=== PATIENT | male | born 1950 ===

== ENCOUNTER 2018-03-10 15:54 | Inpatient (IN) | payer OTHER ==
[2018-02-25 23:00] VITALS: BMI 22.1
[2018-03-10] MEDS ORDERED: Lidocaine 2% Inj (20ml) ONE (16:33)
[2018-03-10] MEDS ORDERED: Iodixanol 320 MG/ML 100 ML BOTTLE IV ONE (16:33)
[2018-03-10] MEDS ORDERED: Iohexol 350mgl/ml 50 ML ONE (16:33)
[2018-03-10] MEDS ORDERED: Iodixanol 320 MG/ML 200 ML BOTTLE IV ONE (16:33)
[2018-03-10] MEDS ORDERED: Nitroglycerin 50mg in D5W 0 MG/0 ML BOTTLE IV ONE (16:34)
[2018-03-10] MEDS ORDERED: Verapamil 0 ML ONE (16:34)
[2018-03-10] MEDS ORDERED: Adenosine 90 mg/30mL IV ONE (16:35)
[2018-03-10] MEDS ORDERED: Midazolam 2 MG/2 ML VIAL ONE (16:58)
[2018-03-10] MEDS ORDERED: Morphine 4 mg/ml ISec ONE (17:20)
[2018-03-10] MEDS ORDERED: Protamine 50mg/5mL Inj IV ONE (17:50)
[2018-03-10] MEDS ORDERED: Morphine 2 mg/2 mL syringe IVP PRN (19:28)
[2018-03-10] MEDS ORDERED: Nitroglycerin 50mg in D5W 50 MG/250 ML BOTTLE IV PRN (19:31)
[2018-03-10] MEDS ORDERED: Nitroglycerin 50mg in D5W 50 MG/250 ML BOTTLE IV ONE (19:35)
[2018-03-10 19:54] LABS: BASO # 0.02 K/mm3 (0.0-2.0); BASO % 0.1 % (0.0-3.0); EOS # 0.1 (0.0-0.7); EOS % 0.5 % (1.5-5.0); GRAN # 14.53 (1.4-6.5); GRAN % 90.1 % (50.0-68.0); HEMOGLOBIN 8.4 g/dL (14.0-18.0); LYMPH # 0.7 (1.2-3.4); LYMPH % 4.6 % (22.0-35.0); MEAN CELL VOLUME 102.3 fl (80.0-105.0); MEAN CORPUSCULAR HEMOGLOBIN 32.4 pg (25.0-35.0); MEAN CORPUSCULAR HGB CONC 31.7 g/dl (31.0-37.0); MEAN PLATELET VOLUME 9.5 fl (7.0-11.0); MONO # 0.8 (0.1-0.6); MONO % 4.7 % (1.0-6.0); PLATELET COUNT 157 10^3/uL (120.0-450.0); RBC 2.59 10^6/uL (3.5-6.1); RED CELL DISTRIBUTION WIDTH 15.8 % (11.5-14.5); WHITE BLOOD COUNT 16.1 10^3/ul (4.5-11.0)
[2018-03-10 20:22] LABS: ALB/GLOB RATIO 1.2 (1.1-1.8); ALBUMIN 3.2 g/dL (3.0-4.8)
[2018-03-10 20:41] LABS: TROPONIN I 0.12 ng/mL
[2018-03-10] MEDS ORDERED: Sodium Chloride 0.9% 1,000 ML IV SCH (20:45)
[2018-03-10 20:53] LABS: INR 1.23 (0.93-1.08); PROTHROMBIN TIME 14.1 SECONDS (9.4-12.5)
[2018-03-10 20:59] LABS: BAND 1 % (0-2); NEUTROPHIL 94 % (50.0-70.0)
[2018-03-10 21:00] LABS: EOSINOPHIL 1 % (0.0-3.0); LYMPHOCYTE 3 % (22.0-35.0); MONOCYTE 1 % (1.0-6.0)
[2018-03-10] MEDS ORDERED: Morphine 4 mg/ml ISec IVP STA (21:17)
[2018-03-10] MEDS ORDERED: Cefepime 1gm in NS 100ml 1 GM/100 ML BAG IVPB ONE (21:50)
[2018-03-10] MEDS ORDERED: Albuterol-Ipratrop 3 mg / 0.5 (3 ml) UD IH PRN (21:57)
[2018-03-10] MEDS ORDERED: Linezolid 600 mg in D5W 300 ml 600 MG/300 ML BAG IVPB SCH (22:00)
[2018-03-10] MEDS ORDERED: Fluticasone-Salmeterol 500-50mcg Diskus INH SCH (22:00)
[2018-03-10] MEDS ORDERED: Morphine 4 mg/ml ISec IVP PRN (22:35)
--- NOTE | 2018-03-10 22:45 | CP.PCM.HP ---
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 Upon reviewing the chart, patient was admitted to [facility] on 02/25 with chest pain, was found to have bilateral pleural effusion left greater than right, underwent thoracentesis removing 1900 cc, which was exudates by light criteria, no growth on cultures so far. Patient was noted to have infiltrations on chest x-ray was started on cefepime, pending cultures. [employer] was called on 03/10 due to recurrent worsening chest pain, labs with elevated trop, with ekg changes thus patient was transferred to [facility] to undergo cardiac cath in [facility]. Rosalee contreras was called while in labor relations specialist today, which was later canceled. Patient underwent coronary artery stenting. Patient was evaluated in ICU, states he's still experiencing left sided chest pain, and is constant. Denies sob, no fever or chills. No nausea, vomiting or diarrhea. No dysurea. 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 PSHx: cardiac cath, AV fistula Social: former tobacco, admits occasional alcohol, denies alcohol and illicit drug use. Allergy: Bactrim Home meds: as per chart. Present on Admission - Present on Admission Any Indicators Present on Admission: No History of DVT/PE: No History of Uncontrolled Diabetes: No Urinary Catheter: No Decubitus Ulcer Present: No Review of Systems - Review of Systems All systems: reviewed and no additional remarkable complaints except Review of Systems: 12 point ROS reviewed, all negative except as per HPI. Past Patient History - Infectious Disease Hx of Infectious Diseases: None - Past Medical History & Family History Past Medical History?: Yes - Past Social History Smoking Status: Former Smoker Alcohol: None Drugs: Denies Home Situation {Lives}: Alone - CARDIAC Hx Cardiac Disorders: Yes Hx Congestive Heart Failure: Yes Hx Hypertension: Yes - PULMONARY Hx Respiratory Disorders: Yes Hx Chronic Obstructive Pulmonary Disease (COPD): Yes Hx Pneumonia: Yes - NEUROLOGICAL Hx Neurological Disorder: Yes Hx Meningitis: Yes Hx Seizures: Yes - HEENT Hx HEENT Problems: No - RENAL Hx Chronic Kidney Disease: Yes Hx Dialysis: Yes - ENDOCRINE/METABOLIC Hx Endocrine Disorders: No - HEMATOLOGICAL/ONCOLOGICAL Hx Blood Disorders: Yes Hx Anemia: Yes Hx Human Immunodeficiency Virus (HIV): No - INTEGUMENTARY Hx Dermatological Problems: No - MUSCULOSKELETAL/RHEUMATOLOGICAL Hx Musculoskeletal Disorders: Yes Hx Arthritis: Yes - GASTROINTESTINAL Hx Gastrointestinal Disorders: Yes Hx Hemorrhoids: Yes - GENITOURINARY/GYNECOLOGICAL Hx Genitourinary Disorders: No - PSYCHIATRIC Hx Psychophysiologic Disorder: Yes Hx Anxiety: Yes Hx Depression: Yes - SURGICAL HISTORY Hx Surgeries: Yes Hx Coronary Stent: No Other/Comment: L eyebrow laceration - ANESTHESIA Hx Anesthesia: Yes Hx Anesthesia Reactions: No Hx Malignant Hyperthermia: No Meds Allergies/Adverse Reactions: Allergies Allergy/AdvReac Type Severity Reaction Status Date / Time sulfamethoxazole Allergy RASH Verified 01/11/18 09:51 [From ] trimethoprim [From ] Allergy RASH Verified 01/11/18 09:51 Physical Exam - Constitutional Appears: Unkempt, Older Than Stated Age, Cachectic, Chronically Ill - Head Exam Head Exam: ATRAUMATIC, NORMAL INSPECTION, NORMOCEPHALIC - Eye Exam Eye Exam: EOMI, Normal appearance, PERRL. absent: Scleral icterus Pupil Exam: NORMAL ACCOMODATION - ENT Exam ENT Exam: Mucous Membranes Dry - Neck Exam Neck exam: Positive for: Normal Inspection - Respiratory Exam Respiratory Exam: Decreased Breath Sounds (at the bases), NORMAL BREATHING PATTERN. absent: Prolonged Expiratory Phase, Rales, Rhonchi, Wheezes, Respiratory Distress, Stridor - Cardiovascular Exam Cardiovascular Exam: Diastolic murmur, Gallop, REGULAR RHYTHM, RRR, Rubs, +S1, + S2. absent: Irregular Rhythm, JVD, Systolic Murmur - GI/Abdominal Exam GI & Abdominal Exam: Normal Bowel Sounds, Soft. absent: Diminished Bowel Sounds , Distended, Firm, Guarding, Hypoactive Bowel Sounds, Rebound, Rigid, Tenderness - Extremities Exam Extremities exam: Positive for: normal inspection. Negative for: pedal edema, tenderness - Back Exam Back exam: NORMAL INSPECTION - Neurological Exam Neurological exam: Alert, Oriented x3 - Psychiatric Exam Psychiatric exam: Flat Affect - Skin Skin Exam: Dry, Normal Color, Warm Additional comments: right groin with no hematoma, no active bleeding. Results - Vital Signs Recent Vital Signs: Last Vital Signs Temp Pulse 112 H 03/10/18 22:19 Resp 23 03/10/18 21:00 BP 119/59 L 03/10/18 22:19 Pulse Ox 100 03/10/18 21:00 - Labs Result Diagrams: 03/10/18 19:50 03/10/18 19:50 Labs: Laboratory Results - last 24 hr 03/10/18 03/10/18 03/10/18 19:50 19:50 20:40 WBC 16.1 H RBC 2.59 L Hgb 8.4 L Hct 26.5 L MCV 102.3 MCH 32.4 MCHC 31.7 RDW 15.8 H Plt Count 157 MPV 9.5 Gran % 90.1 H Lymph % (Auto) 4.6 L Major % (Auto) 4.7 Eos % (Auto) 0.5 L Baso % (Auto) 0.1 Gran # 14.53 H Lymph # (Auto) 0.7 L Major # (Auto) 0.8 H Eos # (Auto) 0.1 Baso # (Auto) 0.02 Neutrophils % (Manual) 94 H Band Neutrophils % 1 Lymphocytes % (Manual) 3 L Monocytes % (Manual) 1 Eosinophils % (Manual) 1 PT 14.1 H INR 1.23 H APTT 28.0 Sodium 135 Potassium 5.0 Chloride 99 Carbon Dioxide 22 Anion Gap 19 BUN 40 H Creatinine 6.0 H Est GFR ( Amer) 11 Est GFR (Non-Af Amer) 9 Random Glucose 114 H Calcium 7.0 L Magnesium 2.2 Total Bilirubin 0.4 AST 253 H D ALT 206 H Alkaline Phosphatase 56 Lactate Dehydrogenase 1285 H Total Creatine Kinase 69 Troponin I 0.12 D Total Protein 5.9 Albumin 3.2 Globulin 2.7 Albumin/Globulin Ratio 1.2 Assessment & Plan - Assessment and Plan (Free Text) Assessment: Patient is a 67 y/o M with PMHx of ESRD ( HD Thu//Thu), RUE DVT, htn, COPD, 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 Patient complained of recurrent chest pain, [employer] was called on , patient had repeat troponin with elevation with ekg changes, patient was transferred to [facility] for cardiac cath. Code blue called, then was subsequently canceled, patient had coronary stenting placed, and is now in ICU for further observation and management. Plan: 1) Chest pain due to NSTEMI- S/P cardiac cath with stenting - Now in ICU for monitoring - will trend troponin and ekg - + recurrent chest pain in icu, patient was giving sublingual nitro - will obtain lipid panel and hgba1c - continue asa - Follow up with cardiology for recommendations - Morphine prn for pain - Resumed coreg in the AM. 2) Transient episode of hypotension - s/p fluid boluses - now on NS@80cc/hr - Will maintain MAP above 65. 3) Mariano pleural effusions s/p thoracentesis at [facility] - will repeat chest x-ray in the morning 4) SIRS r/o sepsis due to pleural infiltrations r/o pneumonia - afebrile, + leukocytosis, + tachycardia - will obtain procal - repeat cultures - blood culture x1 from [facility] growing gram + cocci - will resume cefepime and add zyvox - ID consulted 5) Macrocytic anemia- had previous work up with normal folate and vitamin D - anemia with likely superimposed anemia of kidney disease - was on procrit with HD as per nephro note - No active signs of bleeding, will continue to monitor. 6) ESRD on HD T,t,s - Nephro consulted for HD tomorrow - will resume renvela 7) Worsening transaminitis likely due to shock liver - will monitor for now. 8) H/O copd- will start duoned prn and standing dose 9) GI and DVT prophylaxis: protonix and VTE device, switch to sc heparin tomorrow Patient seen, examined and case discussed with Dr Scott. - Date & Time Date: 03/10/18 Time: 22:20 <Erica Scott - Last Filed: 03/11/18 02:48> Results - Vital Signs Recent Vital Signs: Last Vital Signs Temp 97.8 F 03/10/18 23:41 Pulse 84 03/10/18 23:41 Resp 13 03/10/18 23:41 BP 88/43 L 03/10/18 23:41 Pulse Ox 97 03/10/18 23:30 - Labs Result Diagrams: 03/10/18 19:50 03/10/18 19:50 Labs: Laboratory Results - last 24 hr 03/10/18 03/10/18 03/10/18 19:50 19:50 20:40 WBC 16.1 H RBC 2.59 L Hgb 8.4 L Hct 26.5 L MCV 102.3 MCH 32.4 MCHC 31.7 RDW 15.8 H Plt Count 157 MPV 9.5 Gran % 90.1 H Lymph % (Auto) 4.6 L Major % (Auto) 4.7 Eos % (Auto) 0.5 L Baso % (Auto) 0.1 Gran # 14.53 H Lymph # (Auto) 0.7 L Major # (Auto) 0.8 H Eos # (Auto) 0.1 Baso # (Auto) 0.02 Neutrophils % (Manual) 94 H Band Neutrophils % 1 Lymphocytes % (Manual) 3 L Monocytes % (Manual) 1 Eosinophils % (Manual) 1 PT 14.1 H INR 1.23 H APTT 28.0 Sodium 135 Potassium 5.0 Chloride 99 Carbon Dioxide 22 Anion Gap 19 BUN 40 H Creatinine 6.0 H Est GFR ( Amer) 11 Est GFR (Non-Af Amer) 9 Random Glucose 114 H Calcium 7.0 L Magnesium 2.2 Total Bilirubin 0.4 AST 253 H D ALT 206 H Alkaline Phosphatase 56 Lactate Dehydrogenase 1285 H Total Creatine Kinase 69 Troponin I 0.12 D Total Protein 5.9 Albumin 3.2 Globulin 2.7 Albumin/Globulin Ratio 1.2 Attending/Attestation - Attestation I have personally seen and examined this patient.: Yes I have fully participated in the care of the patient.: Yes I have reviewed all pertinent clinical information: Yes Notes (Text): 03/11/18 02:47 Agree with documentation. CCT spent 30 minutes.
[2018-03-11] MEDS: Albuterol-Ipratrop 3 mg / 0.5 (3 ml) UD IH SCH ×2 (02:25→08:46)
[2018-03-11] MEDS ORDERED: Vancomycin 2 GM in Sodium Chloride 0.9% 500 ML IVPB ONE (06:27)
[2018-03-11] MEDS ORDERED: Meropenem 500 MG in Sodium Chloride 0.9% 50 ML IVPB SCH (06:30)
--- NOTE | 2018-03-11 06:31 | CARDCATH ---
PROCEDURE DATE: 03/10/2018 INDICATIONS: Mr. Rodriguez is a 67-year-old male who presented to [facility] two weeks ago with the complaints of chest pain, unstable angina. He was diagnosed with bilateral pleural effusion, shortness of breath, possible pneumonia, was treated with antibiotics and had thoracentesis done, which showed patient had exudative effusion on the left side and transudative effusion on the right side. He also had heart failure for which he had been on end-stage renal disease hemodialysis. He had recurrent episodes of chest pain. Because of prior history of bipolar behavior, it was decided to pursue noninvasive approach. Initially a stress test was arranged for this morning, right prior to the stressing part of the stress test, patient is already having chest pain then EKG showed dynamic ST changes. CABG was canceled and subsequently he was transferred over to [facility]. He does have known history of CAD, done documented by a cardiac catheterization back in 09/2017 at which time no intervention was performed secondary to his behavior disorder. PROCEDURE PERFORMED: Left heart catheterization with selective left and right coronary angiogram, percutaneous transluminal coronary angioplasty stenting of proximal circumflex 80% stenosis, deployment of 3 x 20 Diaz drug-eluting stent, regeneration from 80% down to 0% BRUNO 3 flow, 6-Uruguayan right femoral arterial access, Angio-Seal device deployed, which failed and subsequently had manual compression for hemostasis. TECHNIQUES OF PROCEDURE: After obtaining informed consent, the patient was brought to the cardiac catheterization suite in post-absorptive, non-sedated state. The patient was prepped and draped in the usual sterile fashion, 2% lidocaine was used for infiltration of anesthesia. Using modified Seldinger technique, a 6-[place]ruguayan sheath was introduced into the right femoral l artery. Subsequently, over a J wire, JL4 and JR4 diagnostic catheters were used to engage the right and left coronary system. Angiogram was obtained in orthogonal views. ANGIOGRAPHIC FINDINGS: Left main large-sized vessel bifurcates into LAD and circumflex. LAD has a proximal 40% stenosis, gives off 2 small diagonal branches. Left circumflex is a large-sized vessel, runs in the AV groove, has a proximal 70% to 80% stenosis, gives off obtuse marginal branch. Ramus intermedius, small-sized vessel. RCA large-sized vessel has distal 70% stenosis, gives off PDA and PLV branches. TECHNIQUES OF INTERVENTION: After reviewing the above angiographic findings, it was decided to further intervene on the proximal circumflex high-grade lesion, EBU 3.5 guiding catheter was used to engage the left and right coronary system. The lesion was predilated with a 2.5 mm x 15 mm balloon and stented with a 3 x 21 mm Diaz drug eluting stent. The final angiogram showed regeneration down to 0% with BRUNO-3 flow. COMPLICATIONS: After the stent deployment, patient had a PEA cardiac arrest, most likely attributable to hypoxemia from sedation. Patient had a CPR for 2 minutes and dose of epi, had a return of spontaneous circulation after 2 minutes. He was awake, responsive and moving all the extremities. He was monitored for half an hour and maintained normal hemodynamics and pressures. IMPRESSION: Successful revascularization of the left circumflex high-grade lesion, deployment of [place] drug eluting stent. RECOMMENDATION: Patient is to be observed in the ICU for close monitoring after PE arrest. Continue patient dual antiplatelet therapy, beta-blockers, statin, guideline-directed therapy for CAD. Karthik Nj MD
[2018-03-11 07:11] LABS: BASO # 0.01 K/mm3 (0.0-2.0); BASO % 0.1 % (0.0-3.0); EOS % 0.4 % (1.5-5.0); GRAN # 6.07 (1.4-6.5); GRAN % 81.7 % (50.0-68.0); HEMOGLOBIN 8.7 g/dL (14.0-18.0); LYMPH # 0.7 (1.2-3.4); LYMPH % 9.5 % (22.0-35.0); MEAN CELL VOLUME 103.3 fl (80.0-105.0); MEAN CORPUSCULAR HEMOGLOBIN 31.8 pg (25.0-35.0); MEAN CORPUSCULAR HGB CONC 30.7 g/dl (31.0-37.0); MEAN PLATELET VOLUME 9.3 fl (7.0-11.0); MONO # 0.6 (0.1-0.6); MONO % 8.3 % (1.0-6.0); RBC 2.74 10^6/uL (3.5-6.1); RED CELL DISTRIBUTION WIDTH 15.9 % (11.5-14.5); WHITE BLOOD COUNT 7.4 10^3/ul (4.5-11.0)
[2018-03-11 07:41] LABS: ALB/GLOB RATIO 1.3 (1.1-1.8); ALBUMIN 3.6 g/dL (3.0-4.8); CALCIUM 7.2 mg/dL (8.4-10.5)
[2018-03-11] MEDS ORDERED: Albuterol 0.042% Inhal Sol (1.25 mg/3 mL) UD IH STA (07:59)
[2018-03-11] MEDS ORDERED: Sod Polystyrene Sulf 15 gm/60 ml Susp PO ONE (07:59)
[2018-03-11] MEDS ORDERED: Dextrose 50% SYRINGE Inj (50 ml) IVP ONE ×3 (07:59→10:09)
[2018-03-11 08:07] LABS: TROPONIN I 2.02 ng/mL
[2018-03-11] MEDS ORDERED: Insulin Regular 1 UNITS/0.01 ML ML IVP ONE (08:08)
--- NOTE | 2018-03-11 08:28 | RAD ---
HISTORY: pleural effusion/infiltration COMPARISON: No prior. FINDINGS: LUNGS: There is a [id number] left pleural effusion identified. Hypervascular markings are appreciated bilaterally with the cardiac silhouette appears upper limits normal size, partially obscured by left pleural effusion. Consider active CHF with underlying airspace disease not excluded at the mid to inferior left lung zones. No pneumothorax bilaterally. No right pleural effusion. OSSEOUS STRUCTURES: No significant abnormalities. VISUALIZED UPPER ABDOMEN: Normal. OTHER FINDINGS: None. IMPRESSION: Pattern suspicious for CHF with [id number] left pleural effusion evident potential airspace disease at the left base.
--- NOTE | 2018-03-11 09:29 | CP.CCUPN ---
CCU Objective - Vital Signs / Intake & Output Intake and Output (Last 8hrs): Intake & Output 03/10/18 03/11/18 03/11/18 22:59 06:59 14:59 Weight 149 lb 9.6 oz - Medications Active Medications: Active Medications Generic Name Dose Route Start Last Admin Trade Name Freq PRN Reason Stop Dose Admin Albuterol/Ipratropium 3 ml 03/11/18 02:00 03/11/18 08:46 Duoneb 3 Mg/0.5 Mg (3 Ml) Ud IH 3 ml [id number] BUSTER Administration Albuterol/Ipratropium 3 ml 03/10/18 21:57 Duoneb 3 Mg/0.5 Mg (3 Ml) Ud IH Q2H PRN Shortness of Breath Aspirin 81 mg 03/11/18 10:00 Aspirin Chewable PO DAILY [facility] Atorvastatin Calcium 10 mg 03/10/18 22:00 03/10/18 22:19 Lipitor PO 10 mg HS BUSTER Administration Carvedilol 25 mg 03/10/18 22:00 03/10/18 22:19 Coreg PO 25 mg Q12 BUSTER Administration Clopidogrel Bisulfate 75 mg 03/11/18 10:00 Plavix PO DAILY BUSTER Meropenem 500 mg/ Sodium 50 mls @ 100 mls/hr 03/11/18 06:30 Chloride IVPB 03/18/18 06:31 Q12 BUSTER Protocol Doxycycline Hyclate 100 mg/ 100 mls @ 100 mls/hr 03/11/18 10:00 Sodium Chloride IVPB Q12 [facility] Protocol Morphine Sulfate 4 mg 03/10/18 22:35 03/11/18 03:40 Morphine IVP 4 mg Q4H PRN Administration chest pain Pantoprazole Sodium 40 mg 03/11/18 10:00 Protonix Inj IVP DAILY [facility] Sevelamer HCl 1,600 mg 03/11/18 10:00 Renagel PO TID BUSTER - Patient Studies Lab Studies: Lab Studies 03/11/18 03/11/18 03/10/18 Range/Units 06:00 06:00 20:40 WBC 7.4 D (4.5-11.0) 10^3/ul RBC 2.74 L (3.5-6.1) 10^6/uL Hgb 8.7 L (14.0-18.0) g/dL Hct 28.3 L (42.0-52.0) % MCV 103.3 (80.0-105.0) fl MCH 31.8 (25.0-35.0) pg MCHC 30.7 L (31.0-37.0) g/dl RDW 15.9 H (11.5-14.5) % Plt Count 159 (120.0-450.0) 10^3/uL MPV 9.3 (7.0-11.0) fl Gran % 81.7 H (50.0-68.0) % Lymph % (Auto) 9.5 L (22.0-35.0) % Hudson % (Auto) 8.3 H (1.0-6.0) % Eos % (Auto) 0.4 L (1.5-5.0) % Baso % (Auto) 0.1 (0.0-3.0) % Gran # 6.07 (1.4-6.5) Lymph # (Auto) 0.7 L (1.2-3.4) Hudson # (Auto) 0.6 (0.1-0.6) Eos # (Auto) 0.0 (0.0-0.7) Baso # (Auto) 0.01 (0.0-2.0) K/mm3 Neutrophils % (Manual) (50.0-70.0) % Band Neutrophils % (0-2) % Lymphocytes % (Manual) (22.0-35.0) % Monocytes % (Manual) (1.0-6.0) % Eosinophils % (Manual) (0.0-3.0) % PT 14.1 H (9.4-12.5) SECONDS INR 1.23 H (0.93-1.08) APTT 28.0 (25.1-36.5) Seconds Sodium 137 (132-148) mmol/L Potassium 6.5 H* D (3.6-5.0) mmol/L Chloride 99 (98-107) mmol/L Carbon Dioxide 22 (21-33) mmol/L Anion Gap 23 H (10-20) BUN 52 H (7-21) mg/dL Creatinine 6.9 H (0.8-1.5) mg/dl Est GFR ( Amer) 10 Est GFR (Non-Af Amer) 8 Random Glucose 96 (70-110) mg/dL Calcium 7.2 L (8.4-10.5) mg/dL Magnesium 2.3 H (1.7-2.2) mg/dL Total Bilirubin 0.4 (0.2-1.3) mg/dL AST 186 H D (17-59) U/L ALT 181 H (7-56) U/L Alkaline Phosphatase 60 (38-126) U/L Lactate Dehydrogenase 759 H (333-699) U/L Total Creatine Kinase 198 (35-230) U/L Troponin I 2.02 H* D ng/mL NT-Pro-B Natriuret Pep (0-450) pg/mL Total Protein 6.4 (5.8-8.3) g/dL Albumin 3.6 (3.0-4.8) g/dL Globulin 2.8 gm/dL Albumin/Globulin Ratio 1.3 (1.1-1.8) Triglycerides 133 (35-160) mg/dL Cholesterol 124 L (130-200) mg/dL LDL Cholesterol Direct 42 (0-129) mg/dL HDL Cholesterol 40 (29-60) mg/dL 03/10/18 03/10/18 03/10/18 Range/Units 19:50 19:50 19:50 WBC 16.1 H (4.5-11.0) 10^3/ul RBC 2.59 L (3.5-6.1) 10^6/uL Hgb 8.4 L (14.0-18.0) g/dL Hct 26.5 L (42.0-52.0) % MCV 102.3 (80.0-105.0) fl MCH 32.4 (25.0-35.0) pg MCHC 31.7 (31.0-37.0) g/dl RDW 15.8 H (11.5-14.5) % Plt Count 157 (120.0-450.0) 10^3/uL MPV 9.5 (7.0-11.0) fl Gran % 90.1 H (50.0-68.0) % Lymph % (Auto) 4.6 L (22.0-35.0) % Hudson % (Auto) 4.7 (1.0-6.0) % Eos % (Auto) 0.5 L (1.5-5.0) % Baso % (Auto) 0.1 (0.0-3.0) % Gran # 14.53 H (1.4-6.5) Lymph # (Auto) 0.7 L (1.2-3.4) Hudson # (Auto) 0.8 H (0.1-0.6) Eos # (Auto) 0.1 (0.0-0.7) Baso # (Auto) 0.02 (0.0-2.0) K/mm3 Neutrophils % (Manual) 94 H (50.0-70.0) % Band Neutrophils % 1 (0-2) % Lymphocytes % (Manual) 3 L (22.0-35.0) % Monocytes % (Manual) 1 (1.0-6.0) % Eosinophils % (Manual) 1 (0.0-3.0) % PT (9.4-12.5) SECONDS INR (0.93-1.08) APTT (25.1-36.5) Seconds Sodium 135 (132-148) mmol/L Potassium 5.0 (3.6-5.0) mmol/L Chloride 99 (98-107) mmol/L Carbon Dioxide 22 (21-33) mmol/L Anion Gap 19 (10-20) BUN 40 H (7-21) mg/dL Creatinine 6.0 H (0.8-1.5) mg/dl Est GFR ( Amer) 11 Est GFR (Non-Af Amer) 9 Random Glucose 114 H (70-110) mg/dL Calcium 7.0 L (8.4-10.5) mg/dL Magnesium 2.2 (1.7-2.2) mg/dL Total Bilirubin 0.4 (0.2-1.3) mg/dL AST 253 H D (17-59) U/L ALT 206 H (7-56) U/L Alkaline Phosphatase 56 (38-126) U/L Lactate Dehydrogenase 1285 H (333-699) U/L Total Creatine Kinase 69 (35-230) U/L Troponin I 0.12 D ng/mL NT-Pro-B Natriuret Pep 66853 H (0-450) pg/mL Total Protein 5.9 (5.8-8.3) g/dL Albumin 3.2 (3.0-4.8) g/dL Globulin 2.7 gm/dL Albumin/Globulin Ratio 1.2 (1.1-1.8) Triglycerides (35-160) mg/dL Cholesterol (130-200) mg/dL LDL Cholesterol Direct (0-129) mg/dL HDL Cholesterol (29-60) mg/dL Laboratory Results - last 24 hr 03/10/18 03/10/18 03/10/18 19:50 19:50 19:50 WBC 16.1 H RBC 2.59 L Hgb 8.4 L Hct 26.5 L MCV 102.3 MCH 32.4 MCHC 31.7 RDW 15.8 H Plt Count 157 MPV 9.5 Gran % 90.1 H Lymph % (Auto) 4.6 L Hudson % (Auto) 4.7 Eos % (Auto) 0.5 L Baso % (Auto) 0.1 Gran # 14.53 H Lymph # (Auto) 0.7 L Hudson # (Auto) 0.8 H Eos # (Auto) 0.1 Baso # (Auto) 0.02 Neutrophils % (Manual) 94 H Band Neutrophils % 1 Lymphocytes % (Manual) 3 L Monocytes % (Manual) 1 Eosinophils % (Manual) 1 PT INR APTT Sodium 135 Potassium 5.0 Chloride 99 Carbon Dioxide 22 Anion Gap 19 BUN 40 H Creatinine 6.0 H Est GFR ( Amer) 11 Est GFR (Non-Af Amer) 9 Random Glucose 114 H Calcium 7.0 L Magnesium 2.2 Total Bilirubin 0.4 AST 253 H D ALT 206 H Alkaline Phosphatase 56 Lactate Dehydrogenase 1285 H Total Creatine Kinase 69 Troponin I 0.12 D NT-Pro-B Natriuret Pep 07597 H Total Protein 5.9 Albumin 3.2 Globulin 2.7 Albumin/Globulin Ratio 1.2 Triglycerides Cholesterol LDL Cholesterol Direct HDL Cholesterol 03/10/18 03/11/18 03/11/18 20:40 06:00 06:00 WBC 7.4 D RBC 2.74 L Hgb 8.7 L Hct 28.3 L MCV 103.3 MCH 31.8 MCHC 30.7 L RDW 15.9 H Plt Count 159 MPV 9.3 Gran % 81.7 H Lymph % (Auto) 9.5 L Hudson % (Auto) 8.3 H Eos % (Auto) 0.4 L Baso % (Auto) 0.1 Gran # 6.07 Lymph # (Auto) 0.7 L Hudson # (Auto) 0.6 Eos # (Auto) 0.0 Baso # (Auto) 0.01 Neutrophils % (Manual) Band Neutrophils % Lymphocytes % (Manual) Monocytes % (Manual) Eosinophils % (Manual) PT 14.1 H INR 1.23 H APTT 28.0 Sodium 137 Potassium 6.5 H* D Chloride 99 Carbon Dioxide 22 Anion Gap 23 H BUN 52 H Creatinine 6.9 H Est GFR ( Amer) 10 Est GFR (Non-Af Amer) 8 Random Glucose 96 Calcium 7.2 L Magnesium 2.3 H Total Bilirubin 0.4 AST 186 H D ALT 181 H Alkaline Phosphatase 60 Lactate Dehydrogenase 759 H Total Creatine Kinase 198 Troponin I 2.02 H* D NT-Pro-B Natriuret Pep Total Protein 6.4 Albumin 3.6 Globulin 2.8 Albumin/Globulin Ratio 1.3 Triglycerides 133 Cholesterol 124 L LDL Cholesterol Direct 42 HDL Cholesterol 40 EKG/Cardiology Studies: Cardiology / EKG Studies 03/10/18 19:48 EKG [ELECTROCARDIOGRAM] Stat Comment: Reason For Exam: chest pain 03/11/18 ELECTROCARDIOGRAM Routine Comment: Reason For Exam: hyperkalemia 03/11/18 05:00 EKG [ELECTROCARDIOGRAM] DAILY Comment: Reason For Exam: chest pain Critical Care Progress Note - Nutrition Nutrition: Nutrition Category Date Time Status Renal Diet [DIET] Diets 03/11/18 Breakfast Ordered Assessment/Plan - Assessment and Plan (Free Text) Plan: Mr Jennifer Contreras was transferred to [facility] for cardiac cath, currently being admitted to [facility] ICU due to code blue during cardiac cath. 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 underwent thoracentesis removing 1900 cc. Exudative on L. Transudate on R. (+) B-(1,3)-D-glucan. Negative cytology for malignancy. 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 Blood culture (+) gram pos cocci in chain x 1 bottle. He was started on cefepime (started on 03/08). DIPLOMATIC INTERPRETER was called on 03/10 due to recurrent worsening chest pain, labs with elevated trop, with ekg changes thus patient was transferred to [facility] to undergo cardiac cath in [facility]. After stenting, PEA arrest. Code blue was called, had CPR x 2 minues, epi given, ROSC in 2 minutes Patient underwent coronary artery stenting: - NAINA proximal circ, start duoantiplt, bb, stain - L cir 70-80% stenosos - RCA 70% stenos
[2018-03-11] MEDS ORDERED: Insulin Regular 1 UNITS/0.01 ML ML IV STA ×2 (09:34→10:09)
[2018-03-11] MEDS ORDERED: Magnesium Sulfate 1 gm in D5W 1 GM/100 ML BAG IVPB ONE (09:39)
[2018-03-11] MEDS ORDERED: Insulin Regular 1 UNITS/0.01 ML ML ONE (09:39)
[2018-03-11] MEDS ORDERED: DOBUTamine 500mg/250ml D5W 500 MG/250 ML BAG ONE (09:46)
[2018-03-11 09:53] LABS: BASO # 0.02 K/mm3 (0.0-2.0); BASO % 0.2 % (0.0-3.0); EOS # 0.1 (0.0-0.7); EOS % 0.6 % (1.5-5.0); GRAN # 6.06 (1.4-6.5); GRAN % 57.3 % (50.0-68.0); HEMOGLOBIN 8.6 g/dL (14.0-18.0); LYMPH # 3.4 (1.2-3.4); LYMPH % 32.3 % (22.0-35.0); MEAN CELL VOLUME 106.5 fl (80.0-105.0); MEAN CORPUSCULAR HEMOGLOBIN 32.7 pg (25.0-35.0); MEAN CORPUSCULAR HGB CONC 30.7 g/dl (31.0-37.0); MEAN PLATELET VOLUME 9.9 fl (7.0-11.0); MONO % 9.6 % (1.0-6.0); RBC 2.63 10^6/uL (3.5-6.1); RED CELL DISTRIBUTION WIDTH 15.8 % (11.5-14.5); VENOUS BLOOD GAS BASE EXCESS -10.4 mmol/L (0.0-2.0); VENOUS BLOOD GAS PO2 20 mm/Hg (30-55); WHITE BLOOD COUNT 10.6 10^3/ul (4.5-11.0)
--- NOTE | 2018-03-11 09:55 | CP.PCM.PN ---
<Skyla Casas - Last Filed: 03/11/18 20:51> Subjective - Date & Time of Evaluation Date of Evaluation: 03/11/18 Time of Evaluation: 09:28 - Subjective Subjective: Skyla Casas, PGY1, Progress Note for Dr Alvarez: Patient seen and examined at bedside. On labs, pt found to be hyperkalemic, 6.5. At time of examination, Code blue code in process. ROS unavailable as pt unresponsive. Objective - Vital Signs/Intake and Output Vital Signs (last 24 hours): Temp Pulse Resp BP Pulse Ox 97.8 F 103 H 17 109/67 95 03/10/18 23:41 03/11/18 04:20 03/11/18 04:20 03/11/18 04:15 03/11/18 04:20 - Medications Medications: Current Medications Albuterol/Ipratropium (Duoneb 3 Mg/0.5 Mg (3 Ml) Ud) 3 ml IH [id number] [facility] Last Admin: 03/11/18 08:46 Dose: 3 ml Albuterol/Ipratropium (Duoneb 3 Mg/0.5 Mg (3 Ml) Ud) 3 ml IH Q2H PRN PRN Reason: Shortness of Breath Aspirin (Aspirin Chewable) 81 mg PO DAILY [facility] Atorvastatin Calcium (Lipitor) 10 mg PO HS [facility] Last Admin: 03/10/18 22:19 Dose: 10 mg Carvedilol (Coreg) 25 mg PO Q12 [facility] Last Admin: 03/10/18 22:19 Dose: 25 mg Clopidogrel Bisulfate (Plavix) 75 mg PO DAILY [facility] Meropenem 500 mg/ Sodium (Chloride) 50 mls @ 100 mls/hr IVPB Q12 [facility] PRN Reason: Protocol Stop: 03/18/18 06:31 Doxycycline Hyclate 100 mg/ (Sodium Chloride) 100 mls @ 100 mls/hr IVPB Q12 [facility] PRN Reason: Protocol Calcium Gluconate 1,000 mg/ (Sodium Chloride) 110 mls @ 110 mls/hr IVPB ONCE ONE Stop: 03/11/18 10:44 Magnesium Sulfate/Dextrose (Magnesium Sulfate 1 Gm/100 Ml D5w) 1 gm in 100 mls @ 100 mls/hr IVPB ONCE ONE Stop: 03/11/18 10:38 Morphine Sulfate (Morphine) 4 mg IVP Q4H PRN PRN Reason: chest pain Last Admin: 03/11/18 03:40 Dose: 4 mg Pantoprazole Sodium (Protonix Inj) 40 mg IVP DAILY [facility] Sevelamer HCl (Renagel) 1,600 mg PO TID [facility] - Labs Labs: 03/11/18 09:36 03/11/18 06:00 PT 14.1 SECONDS (9.4-12.5) H 03/10/18 20:40 INR 1.23 (0.93-1.08) H 03/10/18 20:40 APTT 28.0 Seconds (25.1-36.5) 03/10/18 20:40 - Constitutional Appears: Toxic, In Acute Distress, Older Than Stated Age, Chronically Ill - Head Exam Head Exam: ATRAUMATIC, NORMOCEPHALIC - ENT Exam ENT Exam: Mucous Membranes Dry - Respiratory Exam Respiratory Exam: Decreased Breath Sounds - GI/Abdominal Exam GI & Abdominal Exam: Soft - Extremities Exam Extremities Exam: Normal Inspection - Neurological Exam Neurological Exam: Altered (unresponsive) Assessment and Plan - Assessment and Plan (Free Text) Assessment: 67 year old male with PMH of ESRD (HD Thu//Thu), RUE DVT, htn, COPD, 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 At time of examination, pt had Code blue, requiring ACLS protocol for more than 45 minutes. Pt;s brother Kevan contacted , was okay with discontinuing CPR. Case seen and discussed with Dr Alvarez. <Kirt Alvarez - Last Filed: 03/12/18 08:43> Objective - Vital Signs/Intake and Output Vital Signs (last 24 hours): Temp Pulse Resp BP Pulse Ox 97.5 F L 65 16 100/48 L 97 03/11/18 09:00 03/11/18 09:12 03/11/18 09:00 03/11/18 07:00 03/11/18 09:00 - Labs Labs: 03/11/18 09:36 03/11/18 09:36 PT 14.4 SECONDS (9.4-12.5) H 03/11/18 09:36 INR 1.25 (0.93-1.08) H 03/11/18 09:36 APTT 23.9 Seconds (25.1-36.5) L 03/11/18 09:36 Attending/Attestation - Attestation I have personally seen and examined this patient.: Yes I have fully participated in the care of the patient.: Yes I have reviewed all pertinent clinical information, including history, physical exam and plan: Yes Notes (Text): Case discussed with the residents. Was a code blue on morning of 03/11/18 and ACLS protocol run by pulp press tender Family members decided to stop resuscitative effort. Patient and pronounced by pulp press tender
--- NOTE | 2018-03-11 09:56 | PCM.RRT ---
ATTORNEY RECRUITER Nurse Assessment - Situation Date: 03/11/18 Time ATTORNEY RECRUITER was called: 09:28 ATTORNEY RECRUITER Responder Arrival Time: :28 ATTORNEY RECRUITER Location:: Critical Care Unit Room Number: 129-06 ATTORNEY RECRUITER Reason for Call: Looks Sicker (Code blue, unresponsive) ATTORNEY RECRUITER Called By: RN - Respiratory Oxygen Delivery Method: Intubated Oxygen Flow Rate: 100 Received Nebulizer Treatments:: No Was the Patient Ventilated with Bag/Mask 100% O2?: No Secretions Suctioned?: Yes Was the Patient Intubated?: Yes Was the Patient Placed on a Ventilator?: Yes (already on) - Medication Medications Administered During ATTORNEY RECRUITER: epinephrine, amiodarone. Started Levophed
[2018-03-11 09:58] LABS: VENOUS BLOOD PH 7.17 (7.32-7.43)
[2018-03-11 10:05] LABS: INR 1.25 (0.93-1.08); PARTIAL THROMBOPLASTIN TIME 23.9 Seconds (25.1-36.5); PROTHROMBIN TIME 14.4 SECONDS (9.4-12.5)
[2018-03-11] MEDS ORDERED: Insulin Regular 1 UNITS/0.01 ML ML IVP STA (10:09)
[2018-03-11 10:14] LABS: VENOUS BLOOD GAS BASE EXCESS -11.7 mmol/L (0.0-2.0); VENOUS BLOOD GAS PO2 17 mm/Hg (30-55)
[2018-03-11 10:17] LABS: VENOUS BLOOD PH 7.14 (7.32-7.43)
[2018-03-11 10:22] LABS: ALB/GLOB RATIO 1.2 (1.1-1.8); CALCIUM 7.9 mg/dL (8.4-10.5)
[2018-03-11 10:27] LABS: TROPONIN I 2.24 ng/mL
--- NOTE | 2018-03-11 10:40 | CP.PCM.CON ---
History of Present Illness - History of Present Illness History of Present Illness: Palliative consult requested by Dr Shannon Reason: Goals of care 67 year old male with history of ESRD HD (Thu//Thu), RUE DVT, COPD who was initially admitted to [facility](02/25/18) with chest pain, pleural effusions , R>L. He underwent thoracentisis, 1900cc removed. Cultures pending, started on antibiotics empirically. His chest pain worsened and he was transferred to [facility] for cardiac cath yesterday(03/10/18). Angiograph showed 40 % stenosis of LAD, left circumflex with proximal 70-80 % stenosis. 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 PSH: cardiac cath, AV fistula Social History: Former smoker,occasional alcohol, no drug use.Lives alone Advance Care Planning: The patient did not have an Advanced Directive. Review of Systems: Code blue in progress , patient is unresponsive Past Patient History - Infectious Disease Hx of Infectious Diseases: None - Past Medical History & Family History Past Medical History?: Yes - Past Social History Smoking Status: Former Smoker Alcohol: None Drugs: Denies Home Situation {Lives}: Alone - CARDIAC Hx Cardiac Disorders: Yes Hx Congestive Heart Failure: Yes Hx Hypertension: Yes - PULMONARY Hx Respiratory Disorders: Yes Hx Chronic Obstructive Pulmonary Disease (COPD): Yes Hx Pneumonia: Yes - NEUROLOGICAL Hx Neurological Disorder: Yes Hx Meningitis: Yes Hx Seizures: Yes - HEENT Hx HEENT Problems: No - RENAL Hx Chronic Kidney Disease: Yes Hx Dialysis: Yes - ENDOCRINE/METABOLIC Hx Endocrine Disorders: No - HEMATOLOGICAL/ONCOLOGICAL Hx Blood Disorders: Yes Hx Anemia: Yes Hx Human Immunodeficiency Virus (HIV): No - INTEGUMENTARY Hx Dermatological Problems: No - MUSCULOSKELETAL/RHEUMATOLOGICAL Hx Musculoskeletal Disorders: Yes Hx Arthritis: Yes - GASTROINTESTINAL Hx Gastrointestinal Disorders: Yes Hx Hemorrhoids: Yes - GENITOURINARY/GYNECOLOGICAL Hx Genitourinary Disorders: No - PSYCHIATRIC Hx Psychophysiologic Disorder: Yes Hx Anxiety: Yes Hx Depression: Yes - SURGICAL HISTORY Hx Surgeries: Yes Hx Coronary Stent: No Other/Comment: L eyebrow laceration - ANESTHESIA Hx Anesthesia: Yes Hx Anesthesia Reactions: No Hx Malignant Hyperthermia: No Meds Allergies/Adverse Reactions: Allergies Allergy/AdvReac Type Severity Reaction Status Date / Time sulfamethoxazole Allergy RASH Verified 01/11/18 09:51 [From ] trimethoprim [From ] Allergy RASH Verified 01/11/18 09:51 - Medications Medications: Current Medications Albuterol/Ipratropium (Duoneb 3 Mg/0.5 Mg (3 Ml) Ud) 3 ml IH [id number] [facility] Last Admin: 03/11/18 08:46 Dose: 3 ml Albuterol/Ipratropium (Duoneb 3 Mg/0.5 Mg (3 Ml) Ud) 3 ml IH Q2H PRN PRN Reason: Shortness of Breath Aspirin (Aspirin Chewable) 81 mg PO DAILY [facility] Atorvastatin Calcium (Lipitor) 10 mg PO HS [facility] Last Admin: 03/10/18 22:19 Dose: 10 mg Carvedilol (Coreg) 25 mg PO Q12 [facility] Last Admin: 03/10/18 22:19 Dose: 25 mg Clopidogrel Bisulfate (Plavix) 75 mg PO DAILY [facility] Meropenem 500 mg/ Sodium (Chloride) 50 mls @ 100 mls/hr IVPB Q12 [facility] PRN Reason: Protocol Stop: 03/18/18 06:31 Doxycycline Hyclate 100 mg/ (Sodium Chloride) 100 mls @ 100 mls/hr IVPB Q12 [facility] PRN Reason: Protocol Calcium Gluconate 1,000 mg/ (Sodium Chloride) 110 mls @ 110 mls/hr IVPB ONCE ONE Stop: 03/11/18 10:44 Magnesium Sulfate/Dextrose (Magnesium Sulfate 1 Gm/100 Ml D5w) 1 gm in 100 mls @ 100 mls/hr IVPB ONCE ONE Stop: 03/11/18 10:38 Morphine Sulfate (Morphine) 4 mg IVP Q4H PRN PRN Reason: chest pain Last Admin: 03/11/18 03:40 Dose: 4 mg Pantoprazole Sodium (Protonix Inj) 40 mg IVP DAILY [facility] Sevelamer HCl (Renagel) 1,600 mg PO TID [facility] Results - Vital Signs Recent Vital Signs: Last Vital Signs Temp 97.8 F 03/10/18 23:41 Pulse 103 H 03/11/18 04:20 Resp 17 03/11/18 04:20 BP 109/67 03/11/18 04:15 Pulse Ox 95 03/11/18 04:20 - Labs Result Diagrams: 03/11/18 09:36 03/11/18 09:36 Labs: Laboratory Results - last 24 hr 03/10/18 03/10/18 03/10/18 19:50 19:50 19:50 WBC 16.1 H RBC 2.59 L Hgb 8.4 L Hct 26.5 L MCV 102.3 MCH 32.4 MCHC 31.7 RDW 15.8 H Plt Count 157 MPV 9.5 Gran % 90.1 H Lymph % (Auto) 4.6 L [place] % (Auto) 4.7 Eos % (Auto) 0.5 L Baso % (Auto) 0.1 Gran # 14.53 H Lymph # (Auto) 0.7 L [place] # (Auto) 0.8 H Eos # (Auto) 0.1 Baso # (Auto) 0.02 Neutrophils % (Manual) 94 H Band Neutrophils % 1 Lymphocytes % (Manual) 3 L Monocytes % (Manual) 1 Eosinophils % (Manual) 1 PT INR APTT pO2 VBG pH VBG pCO2 VBG HCO3 VBG Total CO2 VBG O2 Sat (Calc) VBG Base Excess VBG Potassium Glucose Lactate FiO2 Sodium 135 Potassium 5.0 Chloride 99 Carbon Dioxide 22 Anion Gap 19 BUN 40 H Creatinine 6.0 H Est GFR ( Amer) 11 Est GFR (Non-Af Amer) 9 Random Glucose 114 H Calcium 7.0 L Phosphorus Magnesium 2.2 Total Bilirubin 0.4 AST 253 H D ALT 206 H Alkaline Phosphatase 56 Lactate Dehydrogenase 1285 H Total Creatine Kinase 69 Troponin I 0.12 D NT-Pro-B Natriuret Pep 00061 H Total Protein 5.9 Albumin 3.2 Globulin 2.7 Albumin/Globulin Ratio 1.2 Triglycerides Cholesterol LDL Cholesterol Direct HDL Cholesterol Venous Blood Potassium 03/10/18 03/11/18 03/11/18 20:40 06:00 06:00 WBC 7.4 D RBC 2.74 L Hgb 8.7 L Hct 28.3 L MCV 103.3 MCH 31.8 MCHC 30.7 L RDW 15.9 H Plt Count 159 MPV 9.3 Gran % 81.7 H Lymph % (Auto) 9.5 L [place] % (Auto) 8.3 H Eos % (Auto) 0.4 L Baso % (Auto) 0.1 Gran # 6.07 Lymph # (Auto) 0.7 L [place] # (Auto) 0.6 Eos # (Auto) 0.0 Baso # (Auto) 0.01 Neutrophils % (Manual) Band Neutrophils % Lymphocytes % (Manual) Monocytes % (Manual) Eosinophils % (Manual) PT 14.1 H INR 1.23 H APTT 28.0 pO2 VBG pH VBG pCO2 VBG HCO3 VBG Total CO2 VBG O2 Sat (Calc) VBG Base Excess VBG Potassium Glucose Lactate FiO2 Sodium 137 Potassium 6.5 H* D Chloride 99 Carbon Dioxide 22 Anion Gap 23 H BUN 52 H Creatinine 6.9 H Est GFR ( Amer) 10 Est GFR (Non-Af Amer) 8 Random Glucose 96 Calcium 7.2 L Phosphorus Magnesium 2.3 H Total Bilirubin 0.4 AST 186 H D ALT 181 H Alkaline Phosphatase 60 Lactate Dehydrogenase 759 H Total Creatine Kinase 198 Troponin I 2.02 H* D NT-Pro-B Natriuret Pep Total Protein 6.4 Albumin 3.6 Globulin 2.8 Albumin/Globulin Ratio 1.3 Triglycerides 133 Cholesterol 124 L LDL Cholesterol Direct 42 HDL Cholesterol 40 Venous Blood Potassium 03/11/18 03/11/18 03/11/18 09:36 09:36 09:36 WBC 10.6 D RBC 2.63 L Hgb 8.6 L Hct 28.0 L MCV 106.5 H D MCH 32.7 MCHC 30.7 L RDW 15.8 H Plt Count 141 MPV 9.9 Gran % 57.3 Lymph % (Auto) 32.3 [place] % (Auto) 9.6 H Eos % (Auto) 0.6 L Baso % (Auto) 0.2 Gran # 6.06 Lymph # (Auto) 3.4 [place] # (Auto) 1.0 H Eos # (Auto) 0.1 Baso # (Auto) 0.02 Neutrophils % (Manual) Band Neutrophils % Lymphocytes % (Manual) Monocytes % (Manual) Eosinophils % (Manual) PT 14.4 H INR 1.25 H APTT 23.9 L pO2 VBG pH VBG pCO2 VBG HCO3 VBG Total CO2 VBG O2 Sat (Calc) VBG Base Excess VBG Potassium Glucose Lactate FiO2 Sodium 138 Potassium 6.6 H* Chloride 102 Carbon Dioxide 18 L Anion Gap 25 H BUN 48 H Creatinine 6.2 H Est GFR ( Amer) 11 Est GFR (Non-Af Amer) 9 Random Glucose 267 H Calcium 7.9 L Phosphorus 8.5 H Magnesium 2.3 H Total Bilirubin 0.3 AST 136 H D ALT 149 H Alkaline Phosphatase 47 Lactate Dehydrogenase Total Creatine Kinase Troponin I 2.24 H* NT-Pro-B Natriuret Pep Total Protein 5.5 L Albumin 3.0 Globulin 2.5 Albumin/Globulin Ratio 1.2 Triglycerides Cholesterol LDL Cholesterol Direct HDL Cholesterol Venous Blood Potassium 03/11/18 03/11/18 09:36 10:07 WBC RBC Hgb Hct MCV MCH MCHC RDW Plt Count MPV Gran % Lymph % (Auto) [place] % (Auto) Eos % (Auto) Baso % (Auto) Gran # Lymph # (Auto) [place] # (Auto) Eos # (Auto) Baso # (Auto) Neutrophils % (Manual) Band Neutrophils % Lymphocytes % (Manual) Monocytes % (Manual) Eosinophils % (Manual) PT INR APTT pO2 20 L 17 L VBG pH 7.17 L* 7.14 L* VBG pCO2 50.0 51.0 VBG HCO3 18.2 L 17.4 L VBG Total CO2 19.7 L 19.0 L VBG O2 Sat (Calc) 33.0 L 23.7 L VBG Base Excess -10.4 L -11.7 L VBG Potassium 6.5 H* 6.2 H* Glucose 296 H 398 H Lactate 4.5 H* 6.3 H* FiO2 21.0 21.0 Sodium 133.0 128.0 L Potassium Chloride 104.0 99.0 Carbon Dioxide Anion Gap BUN Creatinine Est GFR ( Amer) Est GFR (Non-Af Amer) Random Glucose Calcium Phosphorus Magnesium Total Bilirubin AST ALT Alkaline Phosphatase Lactate Dehydrogenase Total Creatine Kinase Troponin I NT-Pro-B Natriuret Pep Total Protein Albumin Globulin Albumin/Globulin Ratio Triglycerides Cholesterol LDL Cholesterol Direct HDL Cholesterol Venous Blood Potassium 6.5 H* 6.2 H* Assessment & Plan - Assessment and Plan (Free Text) Assessment: 67 year old male with history of ESRD, COPD, CAD,CHF who is admitted with sepsis ,pleural effusion s/p thoracentisis, LAD stenosis s/p stent placement, PEA for 2 minutes yesterday. Now in cardiopulmonary arrest Patient unresponsive, pulseless, Code Blue in progress. I was asked to speak to patient brother Kevan regarding goals of care. Kevan reached via phone. Dr. Nery Nix updated brother of patients condition and poor prognosis. Brother aware that Code Blue was in progress for 30 minutes. I also spoke with patients brother. Explained that patients chance of meaningful recovery very poor. Kevan stated that his brother would not want to be kept alive in vegetative state. I explained that due to length of time he was unresponsive, it was very likely that if he survived there would be severe brain injury. Kevan asked that we continue to work on his brother for another 10 minutes. Code Blue continued. I spoke with Kevan 10 minuets later and explained that patient was not mainlining heartbeat despite aggressive resuscitation measures. At that point, Kevan stated that we should " let him go". I asked again if he wanted medical team to stop resuscitation and he replied yes. Kevan also affirmed this when speaking with Dr. Shannon. Code Blue stopped. Psychosocial support given Time spent in discussion with family member regarding goals and end of life counseling, 30 minutes Plan: Goals of care End of life counseling
--- NOTE | 2018-03-11 10:47 | CP.PCM.PRO ---
Pronouncement of Note - Clinical Findings Physical Exam: No Response Verbal/Painful Stimuli, Absent Peripheral Pulses{ Carotid & Femoral}, Absent Heart & Breath Sounds, No Pupillary Light Reflex, Pupils Fixed & Dilated, Absence of Vital Signs - Pronouncement Time Time of Pronouncement of : 10:37 Additional Comments: Patient non responsive to pain stimuli including sternal rub - Notifications Pronouncement Notifications: Family Notified, Atending Notified Reimbursement Liaison Notified: Yes - Autopsy Autopsy Requested: No [place] [id number] Additional Comments: Dr. Larkin kindly assisted me from [place] office.
--- NOTE | 2018-03-11 12:58 | CARD ---
APPROVED REPORT EKG Measurement Heart [id number] <Conclusion> Sinus tachycardia STTW changes c/w ischemia Prolonged QTc
--- NOTE | 2018-03-11 13:02 | CP.PCM.PN ---
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 During cath drug eluting stent placed in the left circumflex. Chitra contreras was called at 9:29 am. CPR was initiated. patient was PEA, given multiple doses of epi. Patient was intubated by anesthesiology. Labs were drawn. Patient was found to be in v. fib, defibrillator delivered shock and given was amiodarone. Patient was also given insulin for elevated blood glucose. Patient had brief return to sinus bradycardia. Doputamine and levophed were started, atropine given. Pile Driving Setter was contacted. Patient became PEA, CPR was continued. More doses of bicarb, atropine and epi were given. Family was contacted. Patient was started on epi drip. CPR was terminated at the request of family. Please refer to cihtra contreras flow sheet for further details. Objective - Vital Signs/Intake and Output Vital Signs (last 24 hours): Temp Pulse Resp BP Pulse Ox 97.8 F 103 H 17 109/67 95 03/10/18 23:41 03/11/18 04:20 03/11/18 04:20 03/11/18 04:15 03/11/18 04:20 - Medications Medications: Current Medications Albuterol/Ipratropium (Duoneb 3 Mg/0.5 Mg (3 Ml) Ud) 3 ml IH [id number] [facility] Last Admin: 03/11/18 08:46 Dose: 3 ml Albuterol/Ipratropium (Duoneb 3 Mg/0.5 Mg (3 Ml) Ud) 3 ml IH Q2H PRN PRN Reason: Shortness of Breath Aspirin (Aspirin Chewable) 81 mg PO DAILY [facility] Atorvastatin Calcium (Lipitor) 10 mg PO HS [facility] Last Admin: 03/10/18 22:19 Dose: 10 mg Carvedilol (Coreg) 25 mg PO Q12 [facility] Last Admin: 03/10/18 22:19 Dose: 25 mg Clopidogrel Bisulfate (Plavix) 75 mg PO DAILY [facility] Meropenem 500 mg/ Sodium (Chloride) 50 mls @ 100 mls/hr IVPB Q12 [facility] PRN Reason: Protocol Stop: 03/18/18 06:31 Doxycycline Hyclate 100 mg/ (Sodium Chloride) 100 mls @ 100 mls/hr IVPB Q12 [facility] PRN Reason: Protocol Morphine Sulfate (Morphine) 4 mg IVP Q4H PRN PRN Reason: chest pain Last Admin: 03/11/18 03:40 Dose: 4 mg Pantoprazole Sodium (Protonix Inj) 40 mg IVP DAILY [facility] Sevelamer HCl (Renagel) 1,600 mg PO TID [facility] - Labs Labs: 03/11/18 09:36 03/11/18 09:36 PT 14.4 SECONDS (9.4-12.5) H 03/11/18 09:36 INR 1.25 (0.93-1.08) H 03/11/18 09:36 APTT 23.9 Seconds (25.1-36.5) L 03/11/18 09:36 <Mehul Shannon - Last Filed: 03/11/18 18:07> Objective - Vital Signs/Intake and Output Vital Signs (last 24 hours): Temp Pulse Resp BP Pulse Ox 97.8 F 103 H 17 109/67 95 03/10/18 23:41 03/11/18 04:20 03/11/18 04:20 03/11/18 04:15 03/11/18 04:20 - Labs Labs: 03/11/18 09:36 03/11/18 09:36 PT 14.4 SECONDS (9.4-12.5) H 03/11/18 09:36 INR 1.25 (0.93-1.08) H 03/11/18 09:36 APTT 23.9 Seconds (25.1-36.5) L 03/11/18 09:36 Attending/Attestation - Attestation I have personally seen and examined this patient.: Yes I have fully participated in the care of the patient.: Yes I have reviewed all pertinent clinical information, including history, physical exam and plan: Yes Notes (Text): 03/11/18 17:59 67 yo male with ESRD/HD who had PCI yesterday complicated by short PEA arrest and was admitted to ICU afterward. At that time he came around, became alert and oreinted, comfortable. Hypotension resolved after 2L NS bolus. His night was fairly uneventful. Earlier in am today, he was alert awake oriented, comfortable, got OOB to chair. Was watching TV. Suddenly passed out and lost pulse, ACLS protocol initiated, initially PEA, but then vfib identified and defibrillation performed several times according to ACLS/AHA guidelines, while performing ACLS. Several times ROSCs were achieved but they were short-lived which did not give enough time for stat echo and cxr as he kept loosing pulse again. Family was notified and they requested abort CPR/ACLS at that time and make patient DNR . ccm time 40 min
--- NOTE | 2018-03-11 13:11 | CARD ---
APPROVED REPORT EKG Measurement Heart [id number] <Conclusion> Slow, Wide QRS rhythm, probably IVR RBBB pattern R/O acute anterior FL.
--- NOTE | 2018-03-11 13:16 | CP.PCM.CON ---
History of Present Illness - History of Present Illness History of Present Illness: Called in the morning to see this patient who underwent Cardiac cath from probable acute RI. Patient was initially seen in [facility] and transferred to [facility] for cardiac cath. At [facility], blood cx were drawn which showed gram positive cocci. His CXR also showed left sided effusion and could not rule out pneumonia. We initiated Doxycycline and Merrem and gave a dose of IV Vancomycin. When I was about to see the patient, the patient was already undergoing code blue and was not successfully resuscitated. I was not able to get a history from the family but did review his chart. Was not able to examine the patient either. Past Patient History - Infectious Disease Hx of Infectious Diseases: None - Past Medical History & Family History Past Medical History?: Yes - Past Social History Smoking Status: Former Smoker Alcohol: None Drugs: Denies Home Situation {Lives}: Alone - CARDIAC Hx Cardiac Disorders: Yes Hx Congestive Heart Failure: Yes Hx Hypertension: Yes - PULMONARY Hx Respiratory Disorders: Yes Hx Chronic Obstructive Pulmonary Disease (COPD): Yes Hx Pneumonia: Yes - NEUROLOGICAL Hx Neurological Disorder: Yes Hx Meningitis: Yes Hx Seizures: Yes - HEENT Hx HEENT Problems: No - RENAL Hx Chronic Kidney Disease: Yes Hx Dialysis: Yes - ENDOCRINE/METABOLIC Hx Endocrine Disorders: No - HEMATOLOGICAL/ONCOLOGICAL Hx Blood Disorders: Yes Hx Anemia: Yes Hx Human Immunodeficiency Virus (HIV): No - INTEGUMENTARY Hx Dermatological Problems: No - MUSCULOSKELETAL/RHEUMATOLOGICAL Hx Musculoskeletal Disorders: Yes Hx Arthritis: Yes - GASTROINTESTINAL Hx Gastrointestinal Disorders: Yes Hx Hemorrhoids: Yes - GENITOURINARY/GYNECOLOGICAL Hx Genitourinary Disorders: No - PSYCHIATRIC Hx Psychophysiologic Disorder: Yes Hx Anxiety: Yes Hx Depression: Yes - SURGICAL HISTORY Hx Surgeries: Yes Hx Coronary Stent: No Other/Comment: L eyebrow laceration - ANESTHESIA Hx Anesthesia: Yes Hx Anesthesia Reactions: No Hx Malignant Hyperthermia: No Meds Allergies/Adverse Reactions: Allergies Allergy/AdvReac Type Severity Reaction Status Date / Time sulfamethoxazole Allergy RASH Verified 01/11/18 09:51 [From ] trimethoprim [From ] Allergy RASH Verified 01/11/18 09:51 - Medications Medications: Current Medications Albuterol/Ipratropium (Duoneb 3 Mg/0.5 Mg (3 Ml) Ud) 3 ml IH [id number] BUSTER Last Admin: 03/11/18 02:25 Dose: 3 ml Albuterol/Ipratropium (Duoneb 3 Mg/0.5 Mg (3 Ml) Ud) 3 ml IH Q2H PRN PRN Reason: Shortness of Breath Aspirin (Aspirin Chewable) 81 mg PO DAILY [facility] Atorvastatin Calcium (Lipitor) 10 mg PO HS [facility] Last Admin: 03/10/18 22:19 Dose: 10 mg Carvedilol (Coreg) 25 mg PO Q12 [facility] Last Admin: 03/10/18 22:19 Dose: 25 mg Clopidogrel Bisulfate (Plavix) 75 mg PO DAILY [facility] Cefepime HCl 0.5 gm/ Sodium (Chloride) 100 mls @ 100 mls/hr IVPB Q24H BUSTER PRN Reason: Protocol Morphine Sulfate (Morphine) 4 mg IVP Q4H PRN PRN Reason: chest pain Last Admin: 03/11/18 03:40 Dose: 4 mg Pantoprazole Sodium (Protonix Inj) 40 mg IVP DAILY [facility] Sevelamer HCl (Renagel) 1,600 mg PO TID [facility] Results - Vital Signs Recent Vital Signs: Last Vital Signs Temp 97.8 F 03/10/18 23:41 Pulse 103 H 03/11/18 04:20 Resp 17 03/11/18 04:20 BP 109/67 03/11/18 04:15 Pulse Ox 95 03/11/18 04:20 - Labs Result Diagrams: 03/11/18 09:36 03/11/18 09:36 Labs: Laboratory Results - last 24 hr 03/10/18 03/10/18 03/10/18 19:50 19:50 19:50 WBC 16.1 H RBC 2.59 L Hgb 8.4 L Hct 26.5 L MCV 102.3 MCH 32.4 MCHC 31.7 RDW 15.8 H Plt Count 157 MPV 9.5 Gran % 90.1 H Lymph % (Auto) 4.6 L [place] % (Auto) 4.7 Eos % (Auto) 0.5 L Baso % (Auto) 0.1 Gran # 14.53 H Lymph # (Auto) 0.7 L [place] # (Auto) 0.8 H Eos # (Auto) 0.1 Baso # (Auto) 0.02 Neutrophils % (Manual) 94 H Band Neutrophils % 1 Lymphocytes % (Manual) 3 L Monocytes % (Manual) 1 Eosinophils % (Manual) 1 PT INR APTT Sodium 135 Potassium 5.0 Chloride 99 Carbon Dioxide 22 Anion Gap 19 BUN 40 H Creatinine 6.0 H Est GFR ( Amer) 11 Est GFR (Non-Af Amer) 9 Random Glucose 114 H Calcium 7.0 L Magnesium 2.2 Total Bilirubin 0.4 AST 253 H D ALT 206 H Alkaline Phosphatase 56 Lactate Dehydrogenase 1285 H Total Creatine Kinase 69 Troponin I 0.12 D NT-Pro-B Natriuret Pep 62045 H Total Protein 5.9 Albumin 3.2 Globulin 2.7 Albumin/Globulin Ratio 1.2 03/10/18 20:40 WBC RBC Hgb Hct MCV MCH MCHC RDW Plt Count MPV Gran % Lymph % (Auto) [place] % (Auto) Eos % (Auto) Baso % (Auto) Gran # Lymph # (Auto) [place] # (Auto) Eos # (Auto) Baso # (Auto) Neutrophils % (Manual) Band Neutrophils % Lymphocytes % (Manual) Monocytes % (Manual) Eosinophils % (Manual) PT 14.1 H INR 1.23 H APTT 28.0 Sodium Potassium Chloride Carbon Dioxide Anion Gap BUN Creatinine Est GFR ( Amer) Est GFR (Non-Af Amer) Random Glucose Calcium Magnesium Total Bilirubin AST ALT Alkaline Phosphatase Lactate Dehydrogenase Total Creatine Kinase Troponin I NT-Pro-B Natriuret Pep Total Protein Albumin Globulin Albumin/Globulin Ratio
--- NOTE | 2018-03-11 14:12 | CARD ---
APPROVED REPORT EKG Measurement Heart [id number] <Conclusion> Slow, Wide QRS rhythm, probably IVR RBBB pattern R/O acute anterior PR.
--- NOTE | 2018-03-11 16:14 | CARD ---
APPROVED REPORT EKG Measurement Heart [id number] <Conclusion> Sinus tachycardia Possible Left atrial enlargement Incomplete left bundle branch block ST & T wave abnormality, consider inferolateral ischemia Prolonged QTc
[2018-03-11 18:30] VITALS: RESP 16; TEMP 97.5; O2SAT 97
[2018-03-11 18:35] VITALS: BP 100/48
[2018-03-11 18:41] VITALS: PULSE 65
--- NOTE | 2018-03-11 21:11 | CP.PCM.DIS ---
Provider - Provider Date of Admission: 03/10/18 18:25 Attending physician: Viktor Vazquez MD Consults: Cardio Jolynn ROQUE [place] [facility] Time Spent in preparation of Discharge (in minutes): 60 Diagnosis - Discharge Diagnosis (1) Shock liver Status: Acute (2) PB (acute kidney injury) Status: Acute Priority: Medium (3) Acute systolic congestive heart failure Status: Acute (4) Chest pain Status: Resolved Priority: High (5) CAD (coronary artery disease) Status: Acute Hospital Course - Lab Results Lab Results: Most Recent Lab Values WBC 10.6 10^3/ul (4.5-11.0) D 03/11/18 09:36 RBC 2.63 10^6/uL (3.5-6.1) L 03/11/18 09:36 Hgb 8.6 g/dL (14.0-18.0) L 03/11/18 09:36 Hct 28.0 % (42.0-52.0) L 03/11/18 09:36 MCV 106.5 fl (80.0-105.0) H D 03/11/18 09:36 MCH 32.7 pg (25.0-35.0) 03/11/18 09:36 MCHC 30.7 g/dl (31.0-37.0) L 03/11/18 09:36 RDW 15.8 % (11.5-14.5) H 03/11/18 09:36 Plt Count 141 10^3/uL (120.0-450.0) 03/11/18 09:36 MPV 9.9 fl (7.0-11.0) 03/11/18 09:36 Gran % 57.3 % (50.0-68.0) 03/11/18 09:36 Lymph % (Auto) 32.3 % (22.0-35.0) 03/11/18 09:36 [place] % (Auto) 9.6 % (1.0-6.0) H 03/11/18 09:36 Eos % (Auto) 0.6 % (1.5-5.0) L 03/11/18 09:36 Baso % (Auto) 0.2 % (0.0-3.0) 03/11/18 09:36 Gran # 6.06 (1.4-6.5) 03/11/18 09:36 Lymph # (Auto) 3.4 (1.2-3.4) 03/11/18 09:36 [place] # (Auto) 1.0 (0.1-0.6) H 03/11/18 09:36 Eos # (Auto) 0.1 (0.0-0.7) 03/11/18 09:36 Baso # (Auto) 0.02 K/mm3 (0.0-2.0) 03/11/18 09:36 Neutrophils % (Manual) 94 % (50.0-70.0) H 03/10/18 19:50 Band Neutrophils % 1 % (0-2) 03/10/18 19:50 Lymphocytes % (Manual) 3 % (22.0-35.0) L 03/10/18 19:50 Monocytes % (Manual) 1 % (1.0-6.0) 03/10/18 19:50 Eosinophils % (Manual) 1 % (0.0-3.0) 03/10/18 19:50 PT 14.4 SECONDS (9.4-12.5) H 03/11/18 09:36 INR 1.25 (0.93-1.08) H 03/11/18 09:36 APTT 23.9 Seconds (25.1-36.5) L 03/11/18 09:36 pO2 17 mm/Hg (30-55) L 03/11/18 10:07 VBG pH 7.14 (7.32-7.43) L* 03/11/18 10:07 VBG pCO2 51.0 (40-60) 03/11/18 10:07 VBG HCO3 17.4 mmol/l (21-28) L 03/11/18 10:07 VBG Total CO2 19.0 mmol.L (22-28) L 03/11/18 10:07 VBG O2 Sat (Calc) 23.7 % (40-65) L 03/11/18 10:07 VBG Base Excess -11.7 mmol/L (0.0-2.0) L 03/11/18 10:07 VBG Potassium 6.2 mmol/L (3.6-5.2) H* 03/11/18 10:07 Sodium 128.0 mmol/L (132-148) L 03/11/18 10:07 Chloride 99.0 mmol/L (98-107) 03/11/18 10:07 Glucose 398 mg/dl (75-110) H 03/11/18 10:07 Lactate 6.3 mmol/L (0.7-2.1) H* 03/11/18 10:07 FiO2 21.0 % 03/11/18 10:07 Sodium 138 mmol/L (132-148) 03/11/18 09:36 Potassium 6.6 mmol/L (3.6-5.0) H* 03/11/18 09:36 Chloride 102 mmol/L (98-107) 03/11/18 09:36 Carbon Dioxide 18 mmol/L (21-33) L 03/11/18 09:36 Anion Gap 25 (10-20) H 03/11/18 09:36 BUN 48 mg/dL (7-21) H 03/11/18 09:36 Creatinine 6.2 mg/dl (0.8-1.5) H 03/11/18 09:36 Est GFR ( Amer) 11 03/11/18 09:36 Est GFR (Non-Af Amer) 9 03/11/18 09:36 Random Glucose 267 mg/dL (70-110) H 03/11/18 09:36 Hemoglobin A1c 5.0 % (4.2-6.5) 03/10/18 18:55 Calcium 7.9 mg/dL (8.4-10.5) L 03/11/18 09:36 Phosphorus 8.5 mg/dL (2.5-4.5) H 03/11/18 09:36 Magnesium 2.3 mg/dL (1.7-2.2) H 03/11/18 09:36 Total Bilirubin 0.3 mg/dL (0.2-1.3) 03/11/18 09:36 AST 136 U/L (17-59) H D 03/11/18 09:36 ALT 149 U/L (7-56) H 03/11/18 09:36 Alkaline Phosphatase 47 U/L (38-126) 03/11/18 09:36 Lactate Dehydrogenase 759 U/L (333-699) H 06/07/18 06:00 Total Creatine Kinase 198 U/L (35-230) 03/11/18 06:00 Troponin I 2.24 ng/mL H* 03/11/18 09:36 NT-Pro-B Natriuret Pep 46094 pg/mL (0-450) H 03/10/18 19:50 Total Protein 5.5 g/dL (5.8-8.3) L 03/11/18 09:36 Albumin 3.0 g/dL (3.0-4.8) 03/11/18 09:36 Globulin 2.5 gm/dL 03/11/18 09:36 Albumin/Globulin Ratio 1.2 (1.1-1.8) 03/11/18 09:36 Triglycerides 133 mg/dL (35-160) 03/11/18 06:00 Cholesterol 124 mg/dL (130-200) L 03/11/18 06:00 LDL Cholesterol Direct 42 mg/dL (0-129) 03/11/18 06:00 HDL Cholesterol 40 mg/dL (29-60) 03/11/18 06:00 Procalcitonin 4.18 NG/ML (0.19-0.49) H 03/10/18 22:17 Venous Blood Potassium 6.2 mmol/L (3.6-5.2) H* 03/11/18 10:07 - Hospital Course Hospital Course: 67 year old male with history of ESRD HD (Thu//Thu), RUE DVT, COPD, admitted to [facility] for cardiac cath last night s/p NSTEMI at [facility]. Pt underwent cardiac cath yesterday with Dr Neil that revealed L circumflex 80% stenosis with L circumflex NAINA placement. Pt initially was admitted to [facility] on 02/25/18 for chest pain, pleural effusion s/p bilateral thoracentesis with Gr pos cocci bacteremia, treated appropriately with IV antibiotics. This AM, pt c/o nausea, vomiting and became unresponsive, code blue initiated with ACLS protocol with return of ROSC 2-3 times. After 45 minutes of ACLS protocol and discussed with brother Kevan, compressions discharged and pronounced. Please noted this is not a review of entire hospital course. please refer to entire medical record for details. Case discussed with Dr Alvarez. Skyla Casas, PGY1 Discharge Exam - Head Exam Head Exam: ATRAUMATIC, NORMOCEPHALIC Additional comments: unreponsive Discharge Plan - Follow Up Plan Condition: GOOD Disposition: WITH WITHOUT AUTOPSY
[2018-03-11] MEDS ORDERED: Cefepime 0.5 GM in Sodium Chloride 0.9% 100 ML IVPB SCH (21:45)
== END 2018-03-11 10:37 | DRG 246 ==
LOC: CATH 15:54 → CCU 18:25
PROVIDERS: ADMIT Internal Medicine Interventional Cardiology; ATTEND Internal Medicine
PROC: 027034Z Dilation of Coronary Artery, One Artery with Drug-eluting Intraluminal Device, Percutaneous Approach (ICD-10-PCS; principal; 2018-03-10)
PROC: 4A023N7 Measurement of Cardiac Sampling and Pressure, Left Heart, Percutaneous Approach (ICD-10-PCS; 2018-03-10)
PROC: B2111ZZ Fluoroscopy of Multiple Coronary Arteries using Low Osmolar Contrast (ICD-10-PCS; 2018-03-10)
PROC: 5A12012 Performance of Cardiac Output, Single, Manual (ICD-10-PCS; 2018-03-11)
DX: I21.4 Non-ST elevation (NSTEMI) myocardial infarction (principal); N18.6 End stage renal disease; I50.43 Acute on chronic combined systolic (congestive) and diastolic (congestive) heart failure; K72.00 Acute and subacute hepatic failure without coma; I13.2 Hypertensive heart and chronic kidney disease with heart failure and with stage 5 chronic kidney disease, or end stage renal disease; R64 Cachexia; N17.9 Acute kidney failure, unspecified; J44.9 Chronic obstructive pulmonary disease, unspecified; E87.5 Hyperkalemia; I25.10 Atherosclerotic heart disease of native coronary artery without angina pectoris; R09.02 Hypoxemia; I08.0 Rheumatic disorders of both mitral and aortic valves; Z66 Do not resuscitate; I49.01 Ventricular fibrillation; Z88.2 Allergy status to sulfonamides; Z99.2 Dependence on renal dialysis; Z86.718 Personal history of other venous thrombosis and embolism; Z87.891 Personal history of nicotine dependence; Z87.01 Personal history of pneumonia (recurrent); Z68.22 Body mass index [BMI] 22.0-22.9, adult